=== PATIENT | female | born 1945 | race Caucasian/White ===

== ENCOUNTER 2023-12-12 01:55 | Emergency (ER) | payer MEDICARE, OTHER, SELFPAY ==
[2023-12-12] MEDS: NSS 1000 IV (04:00)
--- NOTE | 2023-12-12 04:00 | DOWNTIME ---
There was a [employer] Downtime on 11/14/2023 from 0100 to 11/14/2023 at 0300. Downtime documentation of patient's care, including medication administrations, has been reconciled in the electronic record per guidelines. Refer to the
patient's paper chart under the miscellaneous tab to see printed paper medication records and downtime forms.
[2023-12-12 04:16] LABS: % Basophils 0.4 % (0-2); % Eosinophils 1.9 % (0-6); % Immature Granulocytes 0.5 % (0-0.5); % Lymphocytes 20.7 % (20.5-51.1); % Monocytes 5.8 % (1.7-9.3); % Neutrophils 70.7 % (42.2-75.2); Absolute Eosinophils 0.2 10^3/uL (0-0.7); Absolute Lymphocytes 1.7 10^3/uL (1.2-3.4); Absolute Monocytes 0.5 10^3/uL (0.1-0.6); Absolute Neutrophils 5.8 10^3/uL (1.4-6.5); Hematocrit 38.4 % (37.0-47.0); Hemoglobin 13.9 g/dL (12.0-16.0); Mean Corp Hgb Conc. 36.2 g/dL (33.0-37.0); Mean Corpuscular Hgb 32.7 pg (27.0-31.0); Mean Corpuscular Volume 90.4 fL (81.0-99.0); Mean Platelet Volume 10.4 fL (7.4-10.4); Nucleated Red Blood Cells % 0 %; Platelet Count 221 10^3/uL (130-400); Red Blood Cell Count 4.25 10^6/uL (4.20-5.40); Red Cell Dist. Width 12.4 % (11.5-14.5); White Blood Cell Count 8.2 10^3/uL (4.8-10.8)
[2023-12-12 04:17] LABS: ALT (SGPT) 16 U/L (0-35); AST (SGOT) 22 U/L (14-36); Albumin 4.1 g/dl (3.5-5.0); Alkaline Phosphatase 84 U/L (38-126); Blood Urea Nitrogen 17 mg/dl (7-17); Calcium 9.5 mg/dl (8.4-10.2); Carbon Dioxide 22 mmol/L (22-30); Chloride 105 mmol/L (98-107); Glucose 109 mg/dl (70-99); Potassium 4.2 mmol/L (3.5-5.1); Sodium 139 mmol/L (135-145); Total Bilirubin 1.5 mg/dl (0.2-1.3); Total Protein 6.2 g/dl (6.3-8.2); eGFR > 60.00
--- NOTE | 2023-12-12 04:23 | ED.GENMED ---
History of Present Illness
<DANICA Mckee - Last Filed: 12/12/23 06:39>
General
Chief Complaint: Heart Rate Problem
Source: patient
Exam Limitations: none
Time Seen by Provider: 12/12/23 03:56
Nursing documentation reviewed up to this point in time: agreed with
History of Present Illness
History of Present Illness:
Patient is a 78 yo F w/ no PMH who presents w/ increased HR x 10 hrs. Pt reports she has had URI for past 3 weeks which has been unsuccessfully tx w/ azithromycin and doxy (last dose today). Reports sinuses started draining profusely around 3 pm
which led her to take 1 Mucinex DM. She states this did not help so she took 1 Sudafed about 2 hrs later. Reports feeling unable to get a deep breath after this. She states her brother is a physician, so she called him to ask what to do. Reports he
told her to go to ER and monitor pulse & BP. Reports she did not go to ED immediately but monitored pulse & BP. Reports at 1 am her BP was 130/100 and pulse 120 bpm. This concerned pt since normal BP is 108/62 and she decided to come to ER. Reports
FRANKS around 1 am which was relieved w/ Advil. �She denies vision changes, hearing changes, dizziness, N/V, chills, feeling hot, sweating, or any pain. Notes loose stools due to doxy.
Past History
<DANICA Mckee - Last Filed: 12/12/23 06:39>
Past History
ED Past Medical History: Cancer (CLL)
ED Past Surgical History: None
Social History
Tobacco: Non-smoker
Personal:
Living: with family
Employment: Retired
Review of Systems
<DANICA Mckee - Last Filed: 12/12/23 06:39>
Review of Systems
Constitutional: Denies fever, fatigue or chills
EENT: Reports runny nose
Respiratory: Reports cough and trouble breathing
Cardiac: Denies chest pain, diaphoresis or palpitations
ABD/GI: Denies abdominal pain, nausea, vomiting, diarrhea or constipated
: Reports no symptoms
Neurological: Denies dizzy or headache
Phy Exam
<DANICA Mckee - Last Filed: 12/12/23 06:39>
General Physical Exam
General Presentation: well appearing and no apparent distress
General age: appears stated age
General Habitus: normal
General Mental: alert
ENT Exam
ENT Exam: normocephalic
Cardiovascular Exam
Cardiovascular Exam: regular rate/rhythm, no edema, no gallop and no murmur
Heart Sounds: normal
Pulmonary Exam
Pulmonary Exam: lungs clear, no respiratory distress, no rales, no crackles, no rhonchi and no wheezing
Gastrointestinal Exam
Gastrointestinal Exam: normal bowel sounds, non tender, soft, no pulsatile mass and non distended
Course
<Danya León [facility] - Last Filed: 12/12/23 06:39>
Orders/Labs/Results
Orders:
Orders
12/12/23
Electrocardiogram (*1) Stat
Reason for Study: Chest Pain
12/12/23 04:00
Complete Blood Count/With Diff Routine
Comprehensive Metabolic Panel Routine
12/12/23 05:01
CT Chest Pe Study Urgent
Comment:
Reason For Exam: cough, tachycardia, dyspnea
12/12/23 05:20
0.9% Sodium Chloride 1000 ml [Nss] 1,000 ml IV BOLUS
12/12/23 06:08
Dexamethasone Pf [Decadron] 10 mg PO NOW STA
Abnormal Lab Results
12/12/23
04:00
MCH 32.7 H pg
(27.0-31.0)
Glucose 109 H mg/dl
(70-99)
Total Bilirubin 1.5 H mg/dl
(0.2-1.3)
Total Protein 6.2 L g/dl
(6.3-8.2)
12/12/23 04:00
12/12/23 04:00
Vital Signs
Initial and Last Documented VS:
Initial Vital Signs
Pulse Ox
98
12/12/23 03:00
Last Documented Vital Signs
Pulse Ox
98
12/12/23 05:16
Aniketlt;Wes Henao, DO - Last Filed: 12/12/23 06:40>
Orders/Labs/Results
Orders:
Orders
12/12/23
Electrocardiogram (*1) Stat
Reason for Study: Chest Pain
12/12/23 04:00
Complete Blood Count/With Diff Routine
Comprehensive Metabolic Panel Routine
12/12/23 05:01
CT Chest Pe Study Urgent
Comment:
Reason For Exam: cough, tachycardia, dyspnea
12/12/23 05:20
0.9% Sodium Chloride 1000 ml [Nss] 1,000 ml IV BOLUS
12/12/23 06:08
Dexamethasone Pf [Decadron] 10 mg PO NOW STA
Abnormal Lab Results
12/12/23
04:00
MCH 32.7 H pg
(27.0-31.0)
Glucose 109 H mg/dl
(70-99)
Total Bilirubin 1.5 H mg/dl
(0.2-1.3)
Total Protein 6.2 L g/dl
(6.3-8.2)
12/12/23 04:00
12/12/23 04:00
Vital Signs
Initial and Last Documented VS:
Initial Vital Signs
Pulse Ox
98
12/12/23 03:00
Last Documented Vital Signs
Pulse Ox
98
12/12/23 05:16
<DANICA Mckee - Last Filed: 12/12/23 06:39>
MDM/Problems Addressed
Differential Diagnosis Includes:
panic attack, anxiety, accidental OD
<DANICA Mckee - Last Filed: 12/12/23 06:39>
*Critical Care Note
Total Time (30-74mins, 75-104mins- exclusive of procedures): Not Applicable
ED Attending Note
<DANICA Mckee - Last Filed: 12/12/23 06:39>
-
Portions of this chart may have been created with voice recognition software.� Occasional wrong word or��sound alike� substitutions may have occurred due to the inherent limitations of voice recognition software.
<Wes Henao DO - Last Filed: 12/12/23 06:40>
ED Attending Note
Patient seen and examined by attending physician: Yes
I performed the substantive portion of visit, reviewed & personally made and approve the management plan that is documented in note by myself or CARLOZ.: Yes
ED Attending Note:
This a pleasant 77-year-old female who presents with increased cough and tachycardia for the last 10 hours. She does report some shortness of breath. Patient has been dealing with a URI for the last 3 weeks. She was given azithromycin which she
took completely. She did take doxycycline which seemed to help slightly but as soon as the doxycycline ended today, her symptoms seem to have returned. She states that she has been unable to breathe deeply. She denies any other chest pain or
abdominal pain. Her brother a physician advised her to come to the emergency department for further evaluation. Patient was seen in conjunction with the PA student. I have reviewed and agree with the history and treatment plan presented. On my
independent physical exam, patient is awake, alert, and oriented x3, coughing and dry cough. Heart is slightly tachycardic. Lungs appear clear bilaterally. Skin is warm and dry. Patient moves all 4 extremities.
Discharge Plan
Departure
Patient Disposition: Home (Routine Discharge)
Date of Disposition: 12/12/23
Time of Disposition: 06:38
Patient with high blood pressure during this ER visit?: Yes
Condition: Good
Discharge Problem:
Cough, Acute dyspnea
Instructions: Cough, Adult ED, Bronchitis, Adult ED, BLOOD PRESSURE
Prescriptions:
No Action
multivitamin [Tab-A-Eros] 1 EACH tablet
1 ea PO DAILY
cholecalciferol (vitamin D3) [Vitamin D3] 1,000 UNIT capsule
1,000 unit PO DAILY
B complex with C 20-folic acid [Mynephrocaps] 1 MG capsule
1 mg PO DAILY
ascorbic acid (vitamin C) [Vitamin C] 2,000 MG tablet extended release
3,000 mg PO DAILY
Referrals:
Keri Boggs MD [Family Provider] -
Activity Restrictions/Additional Instructions:
It was a pleasure meeting you and taking part in your care. We hope for your continued healing and wellness.
Please read discharge instructions in their entirety. However, they are for general education and may not describe your exact diagnosis at discharge. Information on your ER visit and medical conditions were discussed with you along with appropriate
follow up information...
If indicated, please take your medications as instructed and indicated on discharge paperwork.
Please schedule a follow up appointment as directed. Call to schedule an appointment
Please return to the emergency department with ANY change in, persisting, or worsening of symptoms. If any of your symptoms do not improve, or persist, or become more severe within 6-12 hours, please return to the emergency department for further
care.
Please return to the emergency department if you develop a headache, neck pain/stiffness, fever greater than 100.4F, chest pain, shortness of breath, persistent nausea, vomiting, slurred speech, difficulty walking, numbness/tingling, weakness, signs
of infection or any other symptoms that are worrisome to you.
If you have any questions or concerns please do not hesitate to call the Hospital at or E-mail me directly at [email or web address]
Interventions
Interventions:
*General Assessment Last Done: 12/12/23 03:00
*Neglect/Abuse Screening Last Done: 12/12/23 03:00
ED- Fall Risk Assessment Last Done: 12/12/23 05:16
*ED COVID-19 Vaccine History Last Done: 12/12/23 03:00
ED- Cardiac Assessment Last Done: 12/12/23 05:16
ED- Pulmonary Assessment Last Done: 12/12/23 05:16
Discharge Date and Time
Print Language: MOZAMBICAN
--- NOTE | 2023-12-12 04:46 | DOWNTIME ---
There was a [employer] Downtime on 12/12/2023 from 0100 to 12/12/2023 at 0355. Downtime documentation of patient's care, including medication administrations, has been reconciled in the electronic record per guidelines. Refer to the
patient's paper chart under the miscellaneous tab to see printed paper medication records and downtime forms.
[2023-12-12 05:12] VITALS: BMI 24.6
[2023-12-12] MEDS: DECADRON 10 MG PO (06:44)
[2023-12-12 06:45] VITALS: BP 135/79
== END 2023-12-12 06:46 | disposition home or self-care (01) ==
LOC: EMR 01:55
PROVIDERS: EMERGENCY PHYSICIAN Student in an Organized Health Care Education/Training Program; FAMILY PHYSICIAN Family Medicine
DX: R05.9 Cough, unspecified (principal); R06.00 Dyspnea, unspecified; C91.10 Chronic lymphocytic leukemia of B-cell type not having achieved remission
CPT/HCPCS: 99284; 96360; 96361; 71275; 80053; 85025; 93005; Q9967